=== PATIENT | female | born 2000 | race Caucasian/White ===

== ENCOUNTER → 2020-01-21 | Outpatient (CLI) | payer OTHER ==
--- NOTE | 2020-01-21 17:42 | RAD ---
EXAM: Right small finger, 3 views. HISTORY: Trauma. COMPARISON: None. FINDINGS: 3 views of the right small finger are obtained. There is a displaced intra-articular fracture involving the base of the fifth distal phalanx. There is dorsal displacement of the proximal distal phalanx fracture fragment and surrounding soft tissue swelling. No additional fracture is seen. IMPRESSION: Displaced intra-articular fracture of the base of the fifth distal phalanx. Electronically signed by: Estrella Cueto MD (01/21/2020 5:38 PM) [facility]
== END ==
LOC: DXRAD 17:13
PROVIDERS: ATTEND Nurse Practitioner Family
DX: S62.636A Displaced fracture of distal phalanx of right little finger, initial encounter for closed fracture (principal); M79.89 Other specified soft tissue disorders; X58.XXXA Exposure to other specified factors, initial encounter; Y93.89 Activity, other specified; Y92.89 Other specified places as the place of occurrence of the external cause; Y99.8 Other external cause status
CPT/HCPCS: 73140

== ENCOUNTER 2021-03-12 19:28 | Emergency (ER) | payer OTHER ==
[~2021-03-12] VITALS: Ht 188 cm; Wt 77.0 kg
[2021-03-12 20:00] VITALS: BP 117/60
[2021-03-12] MEDS ORDERED: predniSONE 20 MG TABLET PO ONE (20:00)
[2021-03-12] MEDS ORDERED: diphenhydrAMINE HCL 25 MG CAPSULE PO ONE (20:00)
[2021-03-12] MEDS ORDERED: PRED50TA PO (20:10)
--- NOTE | 2021-03-12 20:10 | PHYS DOC ---
General Adult EDM: Chief Complaint: SKIN RASH/ABSCESS HPI: HPI: 20-year-old female presents with full body rash. She has had diffuse urticaria all over her body yesterday. She took Benadryl last night and again this morning. It was pruritic but seemed to improve with the Benadryl. She presents to the ER tonight because she is concerned about why she had this happen and she has felt like she has had a sore throat. She denies difficulty swallowing or breathing. Patient admits that for a few days she has had nasal congestion and sore throat. She is fully vaccinated against COVID-19. Denies fever or chills. She has no other significant symptoms at this time. Review of Systems: Review of Systems: Constitutional: Denies fever or chills Eyes: Denies change in visual acuity HENT: Nasal congestion and sore throat Respiratory: Denies cough or shortness of breath Cardiovascular: Denies chest pain or edema GI: Denies abdominal pain, nausea, vomiting, bloody stools or diarrhea : Denies dysuria Musculoskeletal: Denies back pain or joint pain Integument: Denies rash Neurologic: Denies headache, focal weakness or sensory changes Endocrine: Denies polyuria or polydipsia Lymphatic: Denies swollen glands Psychiatric: Denies depression or anxiety Current Medications: Current Meds: Current Medications Medications (Trade) Dose Ordered Sig/Bao Start Time Stop Time Status Last Admin Dose Admin Diphenhydramine HCl (Benadryl) 25 mg 1X ONCE 03/12/21 20:00 03/12/21 20:01 UNV Prednisone (Prednisone) 60 mg 1X ONCE 03/12/21 20:00 03/12/21 20:01 UNV Physical Exam: PE: Constitutional: Well developed, well nourished, no acute distress, non-toxic appearance. [] HENT: Normocephalic, atraumatic, bilateral external ears normal, oropharynx moist with mild postnasal drip, no oral exudates, nose congested. [] Eyes: PERRLA, EOMI, conjunctiva normal, no discharge. [] Neck: Normal range of motion, no tenderness, supple, no stridor. [] Cardiovascular: Heart rate regular rhythm, no murmur [] Lungs & Thorax: Bilateral breath sounds clear to auscultation [] Abdomen: Bowel sounds normal, soft, no tenderness, no masses, no pulsatile masses. [] Skin: Warm, dry, no erythema, no rash. [] Back: No tenderness, no CVA tenderness. [] Extremities: No tenderness, no cyanosis, no clubbing, ROM intact, no edema. [] Neurologic: Alert and oriented X 3, normal motor function, normal sensory function, no focal deficits noted. [] Psychologic: Affect normal, judgement normal, mood normal. [] EKG: EKG: [] Radiology/Procedures: Radiology/Procedures: [] Heart Score: C/O Chest Pain: N/A Risk Factors: Risk Factors: DM, Current or recent (<one month) smoker, HTN, HLP, family history of CAD, obesity. Risk Scores: Score 0 - 3: 2.5% MACE over next 6 weeks - Discharge Home Score 4 - 6: 20.3% MACE over next 6 weeks - Admit for Clinical Observation Score 7 - 10: 72.7% MACE over next 6 weeks - Early Invasive Strategies Course & Med Decision Making: Course & Med Decision Making Pertinent Labs and Imaging studies reviewed. (See chart for details) I will treat the patient with 10 mg of Decadron IM and another 25 mg of Benadryl. I will discharge her with 2 more days of prednisone just in case. This was likely spontaneous urticaria due to her viral illness and stress. She denies any new exposures or other previous allergies. She is stable for discharge at this time. [] Kayley Disclaimer: Kayley Disclaimer: This electronic medical record was generated, in whole or in part, using a voice recognition dictation system. Departure Departure: Impression: Primary Impression: Urticaria Disposition: HOME / SELF CARE / HOMELESS Condition: STABLE Referrals: PCP,NO (PCP) Patient Instructions: Hives, [id number] Scripts Prednisone (PREDNISONE) 50 Mg Tablet 1 TAB PO DAILY for allergic reaction for 3 Days, #3 TAB Prov: LEROY PIERRE DO 03/12/21 LEROY PIERRE DO Mar 12, 2021 20:10
[2021-03-12] MEDS ORDERED: DEXAMETHASONE SOD PHOS 10 MG/ML VIAL. IM ONE (20:15)
== END 2021-03-12 21:11 | disposition home or self-care (01) ==
LOC: ER 19:28
DX: L50.9 Urticaria, unspecified (principal); J02.9 Acute pharyngitis, unspecified
CPT/HCPCS: 96372; 99283; J1100; Q0163